=== PATIENT | female | born 1950 | race Caucasian/White ===

== ENCOUNTER 2023-12-11 22:37 | Observation (INO) | payer MEDICARE, OTHER, SELFPAY ==
[2023-12-11 18:26] VITALS: BP 180/106
[2023-12-11 20:37] VITALS: BP 155/73; BMI 23.0
--- NOTE | 2023-12-11 20:39 | EDRN ---
Pt saw a copy camera operator approximately 3 weeks ago and says she took a swab of her legs and pt says it was positive for staph. Career Developer wanted to put pt on doxycyline x 10 days however pt declined because while she has had it in the past, she is
concerned she would have a reaction to it. Pt says she has a lot of drug allergies 'I'm paranoid about taking anything. 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
she is almost done with 2 weeks of taking it. Pt saw her primary care physician on 12/03 and while pt feels her legs are improving, the doctor 'didn't like the look of them' and advised pt come to ED however because pt lives alone and care for dogs,
she was unable to come to the ED until today when she got dog care. Pt had a VN but says the nurse wanted to use telfa pads but pt cannot use them because she says the liquid from her legs sticks to the pads and she has a very difficult time
removing them. VN was discontinued last week 'because I don't have the type of sores that require monitoring.' Pt has a yellowish look and says she knows this because she eats about 1/2 pound of carrots daily. Pt says her physician is aware and
checks her regularly. Pt denies fever/chills/cough, cp, sob, abd pain, dizziness, weakness, urinary symptoms.
--- NOTE | 2023-12-11 20:50 | ED.GENMED ---
History of Present Illness
General
Chief Complaint: Skin Problem
Source: patient
Exam Limitations: none
Time Seen by Provider: 12/11/23 20:07
Nursing documentation reviewed up to this point in time: agreed with
Travel History
Have you had any contact with someone who has COVID-19?: No
Do you have any symptoms of coronavirus? Fever > 100 degrees, chills, cough, shortness of breath, sore throat, loss of taste or smell, muscle aches, or headache?: No
History of Present Illness
History of Present Illness:
73 y/o F with h/o stasis dermatitis, chronic lymphedema
here with worsening b/l LE skin lesions and swelling with redness streaking past her knees into her thighs
this has been ongoin issue
she has been hospitalized, previously 2020 with something similar
had vascular studies without obvious cause for her chronic edema
but about 3 weeks ago and she was told she had staph infection and the germ drier watned to do doxy but pt is very against medicaitons becuase of allergies
so she did a topical antibiotic and just completed the course but has had extenssion of her redness up her thighs and weeping of her wounds
she had home care for a few weeks which just ended
she saw PCP 4 days ago who wanted her to come tot he ER for admission but she said she didn't have care for her dogs until today
she denie cp, sob, fever, chills, cold feet
she has ongoin undiagnosed abdominal distension as well, has had imaging without cause
Past History
Past History
ED Past Medical History: None
ED Past Surgical History: None
Patient has exhibited threatening behavior?: No
Social History
Tobacco: Non-smoker
Personal:
Living: with family
Review of Systems
Review of Systems
Allergies reviewed?: Yes
All Other Systems: Not applicable
Phy Exam
Physical Exam
Physical Exam:
GENERAL: Alert , in no apparent distress
EYE: pupils equal and reactive
NECK: Supple
ENT: o/p clr, mmm.
CARDIAC: Regular rate and rhythm .
LUNGS: Clear breath sounds bilaterally, no acute respiratory distress, no wheezes/rales/rhonchi
ABDOMEN: Soft, distended, without focal tenderness, no r/g, no cvat, normal bowel sounds
NEUROLOGICAL: Alert and oriented, no focal neuro deficits
SKIN: Warm and dry,
erythema from distal thigh down to foot b/l
edema
venous stasis dermatitis with cauliflower looking lesions worse on the right than left; nontender
pulses palpated
MUSCULOSKELETAL: lymphedema, venous stasis purplisth pigmentation with dermatitis/thickening of the skin/tissue
erthema proximally in the thighs
PSYCH: Normal and appropriate interaction.
Course
Orders/Labs/Results
Orders:
Orders
12/11/23 21:25
Complete Blood Count/With Diff Urgent
Comprehensive Metabolic Panel Urgent
Erythrocyte Sed Rate Urgent
Comment: ADD ON
PTT Urgent
Prothrombin Time Urgent
Blood Culture Q30M
JERRI Source: Blood/Venous
Specimen Description:
12/11/23 21:26
C-Reactive Protein Urgent
Comment: ADD ON
Lactic Acid Urgent
Wound Culture [Wound/Abscess/Other Culture] Urgent
JERRI Source: Leg
Specimen Description: Right
Date Specimen was Collected: 12/11/23
Time Specimen was Collected: 20:56
12/11/23 21:28
Blood Culture Q30M
JERRI Source: Blood/Venous
Specimen Description:
12/11/23 21:46
Vancomycin 1 Gram/200 ml [Vancocin] 1 gram in 200 ml IV NOW
12/11/23 22:22
Add On- LAB Urgent
Tests Added?: crp and esr
04/12/24 22:29
Admit/Transfer Patient As Directed
Co-Sign Provider:
Level of Care: Observation services
Assign to:: Medical/Surgical
Physician / Group: Etienne
Diagnosis: Leg cellulitis
12/11/23 22:30
Code Status As Directed
Resuscitation Status: Full Code
12/12/23 00:17
Bisacodyl [Dulcolax] 10 mg RECTAL E52AEAN PRN
Cholecalciferol (Vitamin D3) [VITAMIN D3 (cholecalciferol)] 25 mcg PO BID PRN
Cyanocobalamin [Vitamin B-12] 1,000 mcg PO DAILY PRN
Docusate W/Senna [Senokot-S] 1 tablet PO BIDPRN PRN
Polyethylene Glycol Powder [Miralax] 17 grams PO DAILYPRN PRN
12/12/23 00:17
Consult Notification Routine
Specialty to Notify: Infectious Disease
Date consulting provider notified: 12/12/23
Time consulting provider notified: 07:48
Notified:: Provider
Comment: TT'd Physician On-Call(Paulie)
INFECTIOUS DISEASE CONSULT Routine
Consulting Provider: Marci Apodaca
Was physician already notified: Yes
Reason for consult: R>L Leg Wounds. ?Impetigo
WOUND/OSTOMY CONSULT Routine
Reason for Consult: R>L LE wound/cellulitis
Activity As Directed
Activity Level: Ambulate
Elevate foot of bed [Foot of bed elevation] As Directed
Elevation Level:: 30 degrees
Pneumatic Compression Sleeves As Directed
Type: Knee high
Vital Signs As Directed
Frequency: Per unit guidelines
Weight As Directed
Frequency: Daily
DX Deep Vein Thrombosis Video Routine
12/12/23 Breakfast
Regular
At Your Request: Full Participation
Regular diet: Gluten Free
12/12/23 10:57
Basic Metabolic Panel IN AM
Complete Blood Count/With Diff IN AM
Abnormal Lab Results
12/11/23 12/11/23
21:25 21:26
Hct 36.1 L %
(37.0-47.0)
RDW 14.6 H %
(11.5-14.5)
Absolute Neuts (auto) 8.0 H 10^3/uL
(1.4-6.5)
Absolute Lymphs (auto) 0.6 L 10^3/uL
(1.2-3.4)
Neutrophils % 83.8 H %
(42.2-75.2)
Lymphocytes % 6.6 L %
(20.5-51.1)
ESR 21 H mm/hour
(0-20)
BUN 22 H mg/dl
(7-17)
C-Reactive Protein 15.40 H mg/L
(0.0-10.00)
12/11/23 21:25
12/11/23 21:25
Vital Signs
Initial and Last Documented VS:
Initial Vital Signs
Temp Pulse Resp BP Pulse Ox
98.6 F 85 18 180/106 100
12/11/23 18:26 12/11/23 18:26 12/11/23 18:26 12/11/23 18:26 12/11/23 18:26
Last Documented Vital Signs
Temp Pulse Resp BP Pulse Ox
98.0 F 76 18 169/97 100
12/14/23 15:11 12/14/23 15:11 12/14/23 15:11 12/14/23 15:11 12/14/23 15:11
MDM/Problems Addressed
Differential Diagnosis Includes:
cellulitis, stasis dermatitis, lymphedema
MDM/Problems Addressed:
73 y/O F with h/o stasis dermatitis, chronic edema, worsening redness up into her thighs and some weeping in legs; had staph culture 3 weeks ago but refused oral abx and did topical meds; redness worsening up legs; pcp told her to come in 3 days ago
but she didn't have poultry inseminator; no fever; pulses intact; wound culture and blood cultures taken; all PCN; will order vanc given penicillin allergy
pt is very hesitant about taking medications but agreed when i spoke with her
*Critical Care Note
Total Time (30-74mins, 75-104mins- exclusive of procedures): Not Applicable
ED Attending Note
-
Portions of this chart may have been created with voice recognition software.� Occasional wrong word or��sound alike� substitutions may have occurred due to the inherent limitations of voice recognition software.
Discharge Plan
Departure
Patient Disposition: Admit
Date of Disposition: 12/11/23
Time of Disposition: 21:27
Admit to: Med/Surg
Presentation/result/management discussed w/ accepting MD/DO: Hospitalist
Patient with high blood pressure during this ER visit?: No
Condition: Fair
Covid-19: Not Applicable
Discharge Problem:
Bilateral cellulitis of lower leg
Interventions
Interventions:
*Risk Screen - Suicide Last Done: 12/12/23 01:04
*General Assessment Last Done: 12/11/23 18:26
*Neglect/Abuse Screening Last Done: 12/11/23 18:26
ED- Fall Risk Assessment Last Done: 12/11/23 21:35
*ED COVID-19 Vaccine History Last Done: 12/12/23 01:04
*Nursing Disposition Last Done: 12/12/23 00:10
ED-Skin Assessment Last Done: 12/11/23 20:37
Discharge Date and Time
Discharge Date/Time: 12/12/23 00:10
[2023-12-11 21:36] LABS: % Basophils 0.4 % (0-2); % Eosinophils 2.6 % (0-6); % Immature Granulocytes 0.3 % (0-0.5); % Lymphocytes 6.6 % (20.5-51.1); % Monocytes 6.3 % (1.7-9.3); % Neutrophils 83.8 % (42.2-75.2); Absolute Eosinophils 0.3 10^3/uL (0-0.7); Absolute Lymphocytes 0.6 10^3/uL (1.2-3.4); Absolute Monocytes 0.6 10^3/uL (0.1-0.6); Hematocrit 36.1 % (37.0-47.0); Mean Corp Hgb Conc. 33.2 g/dL (33.0-37.0); Mean Corpuscular Hgb 27.8 pg (27.0-31.0); Mean Corpuscular Volume 83.8 fL (81.0-99.0); Nucleated Red Blood Cells % 0 %; Platelet Count 287 10^3/uL (130-400); Red Blood Cell Count 4.31 10^6/uL (4.20-5.40); Red Cell Dist. Width 14.6 % (11.5-14.5); White Blood Cell Count 9.6 10^3/uL (4.8-10.8)
--- NOTE | 2023-12-11 21:37 | EDRN ---
Yesica GRAVES wiped area of pt's RLE with alcohol wipe prior to piercing area with sterile needle to obtain culture. This RN was swabbing pt's R arm with alcohol prep for IV start and pt got upset when she discovered it was alcohol prep stating she
is allergic. Area wiped off. Informed pt her RLE was wiped with alcohol prep pad - no reaction. Pt stated she could 'feel a reaction starting' in her arm. Attempted to clean area with betadine swab and pt pulled her arm away stating that can't
be used either because she has an allergy (not listed in allergy list). Pt said the only thing that can be used to clean her skin prior to IV insertion/blood draws is hydrogen peroxide. This RN used hydrogen peroxide to clean sites prior to blood
draw and IV insertion. Pt added that she is dehydrated, has not been drinking much lately and that she is most likely constipated also.
[2023-12-11 21:48] LABS: APTT 26.2 Sec (23.4-35.0)
[2023-12-11 21:49] LABS: Lactic Acid 1.4 mmol/L (0.7-2.0)
[2023-12-11 21:53] LABS: ALT (SGPT) 22 U/L (0-35); AST (SGOT) 34 U/L (14-36); Albumin 4.1 g/dl (3.5-5.0); Alkaline Phosphatase 102 U/L (38-126); Blood Urea Nitrogen 22 mg/dl (7-17); Calcium 9.7 mg/dl (8.4-10.2); Carbon Dioxide 29 mmol/L (22-30); Chloride 101 mmol/L (98-107); Estimated Creatinine Clearance 62 ml/min; Glucose 93 mg/dl (70-99); Potassium 3.8 mmol/L (3.5-5.1); Sodium 137 mmol/L (135-145); Total Bilirubin 0.4 mg/dl (0.2-1.3); Total Protein 6.8 g/dl (6.3-8.2); eGFR > 60.00
[2023-12-11 22:00] VITALS: BP 148/68
--- NOTE | 2023-12-11 22:10 | EDRN ---
Admitting physician at pt bedside. This RN went in to start IV vancomycin. Pt declined 'I don't want to start anything overnight. I want to be more alert and with it, not sleeping when I try something new.' IV vancomycin not given.
--- NOTE | 2023-12-11 22:14 | HPS.HSE ---
Addendum entered and electronically signed by Kelly Clifton DO 12/11/23 22:41:
Addendum:
Discussed with ID
- Recommending elevation of LE above level of heart
- Apply néstor-wrap to b/l LE
- Will discuss with nursing
Original Note:
Family Physician
-
Family Physician: * NONE
Chief Complaint
-
B/L Leg Erythema sent in for Concern for Cellulitis
History of Present Illness
73yo F with PMH Venous Stasis Dermatitis / Lymphedema, Extensive Drug Allergy Profile, Anxiety only on homeopathic/herbal supplements presents to ER sent in by PCP for concern for R>L LE cellulitis. She states mid october she started developing
worsening erythema with mild leg swelling increase. Over the last 1 month right lateral leg wound has developed with honey colored serous drainage. She saw make up girl Dr. Татьяна Lugo who performed staph culture which was positive. Called her and
recommended antibiotics which pt declined. Pt has been providing her own local care. She states she had a bad experience with a wound care clinic in the past. Denies fever, chills, chest pain, palps, wheezing, cough, abd pain, n/v/d/c, dysuria, calf
or leg pain.
Allergies:
PCN - respiratory distress
Sulfa - 'welts'
Keflex - 'blistering lesions'
ER course: Pt presents with V.S.S. WBC 9.6K. LA 1.4. Pt initially ordered IV vancomycin in ER but pt declined upon attempting to administer. Admitted for wound care and ID evaluation.
Medical History
Past Medical History
Past Medical History: Reports Other (Venous Stasis Dermatitis / Lymphedema, Extensive Drug Allergy Profile, Anxiety)
Past Surgical History: Reports Other (Tonsillectomy)
Social History
Tobacco: Non-smoker
Alcohol: None ('allergic to alcohol')
Drug: None
Personal: Single
Living: Alone (Lives with her Dog)
Family History
Family History: Other (Father with MM. Mother with HTN/CVA.)
Allergies / Home Medications
Allergies reflects when Allergies were last updated in [facility].
Home Medications with original date entered in [facility]
Allergy/Medication List:
Allergies
Allergy/AdvReac Type Severity Reaction Status Date / Time
cephalexin [From Keflex] Allergy Mild Rash Verified 12/11/23 20:38
alcohol Allergy Unknown Shortness Verified 12/11/23 21:43
of Breath
mold Allergy Unknown Verified 12/11/23 20:38
Penicillins Allergy Unknown Verified 12/11/23 20:38
povidone-iodine Allergy Unknown Verified 12/11/23 21:43
[From Betadine]
Sulfa (Sulfonamide Allergy Unknown Verified 12/11/23 20:38
Antibiotics)
enviromental allergies Allergy Shortness Uncoded 12/11/23 20:38
of Breath
Home Medications
cholecalciferol (vitamin D3) 25 mcg (1,000 unit) capsule (Vitamin D3) 4,000 unit PO BID PRN Supplement 05/02/21
cyanocobalamin (vitamin B-12) 1,000 mcg tablet 1,000 mcg sublingual DAILY PRN Supplement 05/02/21
d-mannose 500 mg capsule 500 mg PO DAILY PRN supplement ##0 05/02/21
digestive no.8-L.acidophilus 50 million cell-pectin 100 mg tablet (Digestive Enzyme (acidophilus, pectin, bromelain)) 1 - 2 cap PO AC PRN digestive aid 05/02/21
tpouvuynzxw-mtprrtjve-muas361-hyal 750 mg-100 mg-125 mg-1.65 mg tablet 2 tab PO BID PRN Supplement 05/02/21
mv-min-vit C 250 ej-olyvak-uiqwf HCl-herb 124 12.5 mg chewable tablet (Immune Support) 2 capsules PO DAILY PRN Supplement 05/02/21
Homeopathic Herbal Tea 1 dose PO DAILY 12/11/23
ascorbate calcium-bioflavonoid 1,000 mg-200 mg tablet (Kristy-C with Bioflavonoids) 1 tab PO BID PRN Supplement 12/11/23
Review of Systems
-
A 12 point ROS was completed and negative except as noted: Yes
Physical Exam
Vital Signs
Vital Signs
Temp Pulse Resp BP Pulse Ox
98.6 F 88 14 148/68 98
12/11/23 18:26 12/11/23 22:00 12/11/23 22:00 12/11/23 22:00 12/11/23 20:37
Physical Exam
General: Well Developed, Well Nourished and No Apparent Distress
HEENT: NormoCephalic, Moist mucous membranes and Atraumatic
Respiratory: Clear
Cardiac: S1/S2 and Regular Rhythm; No Murmur or Rub
GI: Soft, Non Tender, Non Distended and Normal Bowel Sounds; No Organomegaly
Rectal: Deferred by Provider
Musculoskeletal: No Clubbing, No Cyanosis and No Edema
Skin: Warm and Other (B/L LE lymphedema. Honey crusted lesion on right lateral tibia. Serous drainage. No TTP. )
Neuro: Awake, Alert, Oriented, AO x 3, No Motor Deficits and Nonfocal/grossly intact
Hematologic/Lymphatic: No Lymphadenopathy
Psych: Anxious
Laboratory Results
-
12/11/23 21:25
12/11/23 21:25
Laboratory Results
PT 13.0 Sec (11.4-14.6) 12/11/23 21:25
INR 1.00 12/11/23 21:25
APTT 26.2 Sec (23.4-35.0) 12/11/23 21:25
Lactic Acid 1.4 mmol/L (0.7-2.0) 12/11/23 21:26
Total Bilirubin 0.4 mg/dl (0.2-1.3) 12/11/23 21:25
AST 34 U/L (14-36) 12/11/23 21:25
ALT 22 U/L (0-35) 12/11/23 21:25
Alkaline Phosphatase 102 U/L (38-126) 12/11/23 21:25
Data Reviewed
-
Lab Data: Labs Reviewed by me
Old Records: Reviewed
Impression/Plan
-
B/L R>L Leg Cellulitis
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 Follows with Derm Dr. Татьяна Lugo who performed +staph culture and recommended abx that pt initially refused
- Afebrile. No leukocytosis. LA 1.4.
- Vanco initially ordered pt refused. She seems agreeable to have ID and wound care evaluate and to consider starting abx upon their recommendations
- Check ESR/CRP
- Continue leg elevation.
Multiple Drug Allergies - PCN - Respiratory distress; Sulfa - 'welts'; Keflex - 'blistering lesions'. Will consult ID.
Hx Venous Stasis/Lymphedema - No known CHF or liver disease history. TTE 2020 wtih EF 70%, no WMA. Encourage leg elevation.
Anxiety - Pt uses homeopathic agents
Diet: Regular
DVT Ppx: SCDs. High suspicion pt will refuse Lovenox. Consider further if remains hospitalized.
Code Status: Full
[2023-12-11 22:57] LABS: Erythrocyte Sed Rate 21 mm/hour (0-20)
--- NOTE | 2023-12-11 23:15 | W.PN.UPDATE ---
Addendum entered and electronically signed by Kelly Clifton DO 12/11/23 23:18:
- This document entered in error
Original Note:
Update Note
Progress Note Update
Please refer to attestation to [employer] note for attending history/assessment/plan
--- NOTE | 2023-12-11 23:19 | EDRN ---
B/L LE's wrapped with néstor wraps and propped on pillows per Dr Cilfton who said that is what ID recommends. Pt states she needs hypoallergenic bed linens/gown. Pt finishing dinner salad. field service supervisor aware of pt's need for hypoallergenic
linen.
[2023-12-12 00:31] VITALS: BP 149/74
[2023-12-12 00:32] VITALS: BMI 23.4
--- NOTE | 2023-12-12 02:00 | PTCARENOTE ---
Received patient from the ED. Patient AAOx3, lungs clear, heart rate regular, +2 lower extremity pitting edema, weak PP. distended abdomen. Lower legs are reddened, flakey, scabbed, tender, with cauliflower like patches. Legs are raised 30 degrees
with bed position and pillows. Patient uses a cane for ambulation. Patient admitted and oriented to the unit. Bed alarm placed for safety. Patient verbalized an understanding to ring for all transfers. Call parker demonstrated and in reach.
--- NOTE | 2023-12-12 02:19 | PTCARENOTE ---
Patient has a list of supplements she wants to review with the doctor. She has some with her that she will discuss with the doctor prior to taking.
[2023-12-12 06:00] VITALS: BMI 23.4
[2023-12-12 07:55] VITALS: BP 139/76
--- NOTE | 2023-12-12 08:24 | W.PN.HOSP.TC ---
Addendum entered and electronically signed by Tino Roger MD 12/12/23 17:45:
RN and CM told me she wanted to speak with physician and possible sign AMA. I went back and talked to patient and RN at bedside. For now she is staying but that could change. I also spoke with ID in person.
Original Note:
Today's Communication/Plan
-
ID eval.
Assessment / Plan
Assessment / Plan
Physical Exam
General: Well Developed, Well Nourished and No Apparent Distress
HEENT: NormoCephalic, Moist mucous membranes and Atraumatic
Respiratory: Clear
Cardiac: S1/S2 and Regular Rhythm; No Murmur or Rub
GI: Soft, Non Tender, Non Distended and Normal Bowel Sounds; No Organomegaly
Rectal: Deferred by Provider
Musculoskeletal: No Clubbing, No Cyanosis and No Edema
Skin: Warm and legs are wrapped up today. Other (upon admission B/L LE lymphedema. Honey crusted lesion on right lateral tibia. Serous drainage. No TTP. )
Neuro: Awake, Alert, Oriented, AO x 3, No Motor Deficits and Nonfocal/grossly intact
Hematologic/Lymphatic: No Lymphadenopathy
Psych: Anxious
A/P:
Possible B/L R>L Leg Cellulitis
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 Follows with Derm Dr. Татьяна Lugo who performed +staph culture and recommended abx that pt initially refused
- Afebrile. No leukocytosis. LA 1.4.
- Vanco initially ordered pt refused. She seems agreeable to have ID and wound care evaluate and to consider starting abx upon their recommendations
- Check ESR/CRP
- Continue leg elevation.
-Patient concerned about her observation status. She is thinking about signing AGAINST MEDICAL ADVICE. If she stays until ID sees her, she might meet criteria for inpatient if she needs IV antibiotics. Otherwise she would be okay to sign AMA or
even be discharged.
Multiple Drug Allergies - PCN - Respiratory distress; Sulfa - 'welts'; Keflex - 'blistering lesions'. Will consult ID.
Hx Venous Stasis/Lymphedema - No known CHF or liver disease history. TTE 2020 wtih EF 70%, no WMA. Encourage leg elevation.
Anxiety - Pt uses homeopathic agents
Diet: Regular
DVT Ppx: SCDs. High suspicion pt will refuse Lovenox. Consider further if remains hospitalized.
Code Status: Full
Anticipated Discharge: 24 - 48 hours
Subjective/Interval History
-
Date of Service: December 12, 2023
Patient denies any new complaints. Afebrile
Objective Data
-
Labs:
Laboratory Results
12/11/23 12/12/23
21:25 06:00
WBC 9.6 Pending
Hgb 12.0 Pending
Hct 36.1 L Pending
Plt Count 287 Pending
PT 13.0
INR 1.00
APTT 26.2
Sodium 137 Pending
Potassium 3.8 Pending
Chloride 101 Pending
Carbon Dioxide 29 Pending
BUN 22 H Pending
Creatinine 0.7 Pending
Glucose 93 Pending
Calcium 9.7 Pending
Total Bilirubin 0.4
AST 34
ALT 22
Alkaline Phosphatase 102
Vital Signs:
Vital Signs
Temp Pulse Resp BP Pulse Ox
97.8 F 94 16 149/74 99
12/12/23 00:31 12/12/23 00:31 12/12/23 00:31 12/12/23 00:31 12/12/23 00:31
I&O
12/11/23 12/12/23 12/13/23
06:59 06:59 06:59
Intake Total 360 / 360
Balance 360 / 360
--- NOTE | 2023-12-12 08:30 | PTCARENOTE ---
Checked in on pt and pt now sleeping holding the menu. Will cont to observe her satis and be available.
[2023-12-12 11:05] LABS: % Basophils 0.3 % (0-2); % Eosinophils 2.5 % (0-6); % Immature Granulocytes 0.3 % (0-0.5); % Monocytes 10.5 % (1.7-9.3); % Neutrophils 77.4 % (42.2-75.2); Absolute Eosinophils 0.2 10^3/uL (0-0.7); Absolute Lymphocytes 0.6 10^3/uL (1.2-3.4); Absolute Monocytes 0.7 10^3/uL (0.1-0.6); Absolute Neutrophils 5.3 10^3/uL (1.4-6.5); Hematocrit 31.9 % (37.0-47.0); Hemoglobin 10.7 g/dL (12.0-16.0); Mean Corp Hgb Conc. 33.5 g/dL (33.0-37.0); Mean Corpuscular Hgb 27.9 pg (27.0-31.0); Mean Corpuscular Volume 83.3 fL (81.0-99.0); Mean Platelet Volume 10.1 fL (7.4-10.4); Nucleated Red Blood Cells % 0 %; Platelet Count 234 10^3/uL (130-400); Red Blood Cell Count 3.83 10^6/uL (4.20-5.40); Red Cell Dist. Width 14.6 % (11.5-14.5); White Blood Cell Count 6.9 10^3/uL (4.8-10.8)
[2023-12-12 11:23] LABS: Blood Urea Nitrogen 20 mg/dl (7-17); Calcium 8.9 mg/dl (8.4-10.2); Carbon Dioxide 26 mmol/L (22-30); Chloride 110 mmol/L (98-107); Estimated Creatinine Clearance 71 ml/min; Glucose 100 mg/dl (70-99); Potassium 3.7 mmol/L (3.5-5.1); Sodium 138 mmol/L (135-145); eGFR > 60.00
--- NOTE | 2023-12-12 11:33 | PTCARENOTE ---
Pt still asleep at this point. Will cont to monitor.
--- NOTE | 2023-12-12 12:43 | CM ---
Addendum entered by Glenis Santana 12/12/23 12:47:
CM consult for advanced directives
Pt notes she already has ADs at home which need to be updated
She accepted AD packet
Original Note:
CM met with pt bedside
Pt resides alone in a 2SH with 1STE
Full flight to 2nd floor
Pt is independent with her ADLs and drives+
She utilizes a can while in the community
Pt recently [facility]
PCP- Angelina Jaimes
Rx- Le
Pt noted she does not believe in traditional medicine
Tries to follow holistic approach to health and wellness
Pt is OBS- CLARK verbally reviewed
Copy providede
Pt upset regarding OBS status- noted she might consider leaving AMA
Pt also upset she was not notified re: OBS status prior to admission
Offered risk info- pt requested time to think about how she wants to proceed
Outreach to Dr Roger/SAUNDRA with update
Discharge Disposition- home, watch for VN/WOC/abx needs
--- NOTE | 2023-12-12 12:51 | CON.ID ---
Consultation
-
Date/Time Consultation Requested: 12/12/23 00:17
Date/Time Consultation Performed: 12/12/23 16:49
Requesting Provider: Dr Clifton
Performing Provider: Dr Apodaca
Reason for Consultation: R>L Leg Wounds. ?Impetigo
Chief Complaint / Past History
Chief Complaint
chronic lymphedema
History of Present Illness
Ms Quiñonez is a 73 year old female with known history of uncontrolled, chornic lymphedea with venous stasis, who belives she is allergic/intolerant to most substances, she was referred to the ER for chronic drainage from the bilateral legs with
yellowish, opaque color. She states it is unchanged for several weeks. She has previously tried our lymphedema center however she feels that the devices that were recommended (LUCY-wraps and SCDs) had substances that she was allergic to and stopped
following up with them. She did have her legs compressed and elevated overnight since admission and reports significant improvement in the erythema and edema. She reports a superficial culture done several weeks ago was positive for 'staph' and
that her director card recommended oral antibiotics and she refused. No fevers or chills. No chest pain, palpitations, wheezing, cough, abdominla pain, nausea, vomiting, diarrhea, constipation, dysuria, calf or leg pain.
Past History
Additional Past Medical History:
Venous Stasis Dermatitis / Lymphedema, Extensive Drug Allergy Profile, Anxiety
Additional Past Surgical History:
Tonsillectomy
Allergy History:
cephalexin [From Keflex] Allergy (Mild, Verified 12/11/23 20:38)
Rash
alcohol Allergy (Unknown, Verified 12/11/23 21:43)
Shortness of Breath
latex Allergy (Verified 12/11/23 23:20)
Unknown
mold Allergy (Verified 12/11/23 20:38)
Unknown
Penicillins Allergy (Verified 12/12/23 12:14)
Shortness of Breath
povidone-iodine [From Betadine] Allergy (Verified 12/11/23 21:43)
Unknown
Sulfa (Sulfonamide Antibiotics) Allergy (Verified 12/12/23 12:14)
Hives
enviromental allergies Allergy (Uncoded 12/11/23 20:38)
Shortness of Breath
Medications Reviewed: Yes
Social History
Tobacco: Non-Smoker
Alcohol: None
Drug: None
Family History
Family History: Not Pertinent
Review of Systems
Review of Systems
General: Negative Fever or Chills
All systems: All other systems were reviewed and were negative
Vital Signs
Temp Pulse Resp BP Pulse Ox
98.0 F 81 16 139/76 96
12/12/23 07:55 12/12/23 07:55 12/12/23 07:55 12/12/23 07:55 12/12/23 07:55
Physical Exam
Physical Exam
Constitutional: No Acute Distress
Cardiovascular: Regular Rate and S1/S2; Negative Murmur or Rub
Pulmonary: Clear and Symmetric; Negative Wheezes, Rales or Rhonchi
Gastrointestinal: Soft, Non Tender, Non Distended and Normal Bowel Sounds
Extremities: Other (bilateral chronic lichenification with skin thickening, papillomatosis, yellowish drainage from around the papillomas)
Skin: Warm and Dry; Negative Jaundice
Neurological: Awake
Lab / Diagnostic Study Results
12/12/23 10:57
12/12/23 10:57
Abs Immat Gran (auto) 0.0 10^3/uL (0-0.05) 12/12/23 10:57
Absolute Neuts (auto) 5.3 10^3/uL (1.4-6.5) 12/12/23 10:57
Absolute Lymphs (auto) 0.6 10^3/uL (1.2-3.4) L 12/12/23 10:57
Absolute Monos (auto) 0.7 10^3/uL (0.1-0.6) H 12/12/23 10:57
Absolute Basos (auto) 0.0 10^3/uL (0-0.2) 12/12/23 10:57
Immature Gran % 0.3 % (0-0.5) 12/12/23 10:57
Neutrophils % 77.4 % (42.2-75.2) H 12/12/23 10:57
Lymphocytes % 9.0 % (20.5-51.1) L 12/12/23 10:57
Monocytes % 10.5 % (1.7-9.3) H 12/12/23 10:57
Eosinophils % 2.5 % (0-6) 12/12/23 10:57
Basophils % 0.3 % (0-2) 12/12/23 10:57
ESR Cancelled 12/11/23 22:19
PT 13.0 Sec (11.4-14.6) 12/11/23 21:25
INR 1.00 12/11/23 21:25
Lactic Acid 1.4 mmol/L (0.7-2.0) 12/11/23 21:26
C-Reactive Protein Cancelled 12/11/23 22:19
Microbiology Results
Micro:
12/11/23 21:26 Wound Culture - Pending
Leg - Right Gram Stain - Pending
12/11/23 21:25 Blood Culture - Pending
Blood/Venous
12/11/23 21:28 Blood Culture - Pending
Blood/Venous
Assessment / Plan
Ms Quiñonez volunteers that she 'isnt looking for western medicine,' and that she has deep personal beliefs about when she feels are the significant risks of antibiotics. She doesnt feel that the legs have changed much over the last several weeks.
She is not willing to try any empiric antibiotics and I am not certain that there would be much of a change anyways. Her symptoms could all be summed up as chronic uncontrolled lymphedema with venous stasis. Superficial skin cultures will always
result with multiple bacteria. She has already purchased a compounded medication which sounds to be mupirocin. She readily states 'I do everything I can to avoid antibiotic treatment.' I have offered workup for causes of lymphedema including TTE
which would be new to our system, venous US for venous reflex which would be a 3 year update - she is not willing to consider these while hospitalized. She mentions that her outpatient MDs have made similar recommendations and I would advise her to
continue following with them. I have offered a trial of empiric vancomycin which she is not willing to try even when I explained that it is very different than the medications that she feels that she has reacted to in the past. She prefers to try
the mupicorin that she had compounded. She has been compliant with compression and elevation while here and she reports that she is very satisfied with what she volunteered was significant improvement. She is not willing to follow up with
lymphedema center here as she objects to chronic compression and regular elevation. The only alternative I can think is the Lymphedema Center at [facility] which does offer lymph node transplant which can be partially effective, however, if she is
not willing to comply with their recommendations for post operative care I am not certain how much efficacy such a procedure would have. I do not see an indication for further hospitalization at this time - she has been afebrile, bp stable, without
leukocytosis or and L shift has already nearly normalized. Blood cultures are no growth to date. Wound culture is pending and expected to be polymicrobial. She could follow up with her PCP regarding this - or if she changes her mind and would
like to try an antibiotic inpatient then please notify me.
Ms Quiñonez and I have fundamentally different views on western medicine; her stated goal is to avoid western medicine which is the foundation of my training. She has refused all of my plans for this evening - though she states she might be
willing to pursue them outpatient with her PCP. I am not trained in wholistic medicine which is her stated preference. I would advise her to follow up with a primary care physician or her wholistic physician if that is her wish. I did suggest the
referral to [facility] lymphedema center which may consider.
Care Review
Plan reviewed with: Physician (Dr Roger)
--- NOTE | 2023-12-12 13:00 | PTCARENOTE ---
Spoke with pt a bedside and is wants to talk to the doctor before shes signs the AMA form. She has not been advised yet she stated so how can I sign this form? She was reluctant in coming to the hospital in the first place she said but her primary
Dr. Jaimes advised her to do so and stated that she needs antibiotics. She told him that she is not going to take any antibiotics and will treat this condition holistically. However she did come into the hospital this past evening. She is very
upset stating that 'They did this to again last last time.' They did not tell me that I was going to be admitted under observation. Notified MD. Will cont to monitor.
[2023-12-12 15:30] VITALS: BP 131/73
--- NOTE | 2023-12-12 21:11 | PTCARENOTE ---
Nursing music supervisor came to the patient's bedside twice to discuss any concerns about her plan of care and thoughts about leaving AMA. she is aware it is her choice to leave and she verbalized an understanding to alert us if she wants to leave AMA.
[2023-12-12 23:26] VITALS: BP 125/62
--- NOTE | 2023-12-13 02:00 | PTCARENOTE ---
Patient was accommodated with bottled water as requested due to her concerns over the water here. Also a gluten free box lunch was provided as requested.
[2023-12-13 06:00] VITALS: BMI 23.9
[2023-12-13 07:50] LABS: % Basophils 0.5 % (0-2); % Eosinophils 4.6 % (0-6); % Immature Granulocytes 0.4 % (0-0.5); % Lymphocytes 13.9 % (20.5-51.1); % Monocytes 10.7 % (1.7-9.3); % Neutrophils 69.9 % (42.2-75.2); Absolute Eosinophils 0.3 10^3/uL (0-0.7); Absolute Lymphocytes 0.8 10^3/uL (1.2-3.4); Absolute Monocytes 0.6 10^3/uL (0.1-0.6); Absolute Neutrophils 3.9 10^3/uL (1.4-6.5); Hemoglobin 12.4 g/dL (12.0-16.0); Mean Corp Hgb Conc. 31.8 g/dL (33.0-37.0); Mean Corpuscular Hgb 27.7 pg (27.0-31.0); Mean Corpuscular Volume 87.2 fL (81.0-99.0); Mean Platelet Volume 10.4 fL (7.4-10.4); Nucleated Red Blood Cells % 0 %; Platelet Count 273 10^3/uL (130-400); Red Blood Cell Count 4.47 10^6/uL (4.20-5.40); Red Cell Dist. Width 14.8 % (11.5-14.5); White Blood Cell Count 5.6 10^3/uL (4.8-10.8)
[2023-12-13 08:14] LABS: Blood Urea Nitrogen 21 mg/dl (7-17); Calcium 9.8 mg/dl (8.4-10.2); Carbon Dioxide 28 mmol/L (22-30); Chloride 103 mmol/L (98-107); Estimated Creatinine Clearance 71 ml/min; Glucose 99 mg/dl (70-99); Sodium 139 mmol/L (135-145); eGFR > 60.00
[2023-12-13 08:24] VITALS: BP 150/88
--- NOTE | 2023-12-13 10:53 | W.PN.ID1 ---
Date of Service
Date of Service: December 13, 2023
Today's Communication
Patient prefers to have ID and sensitivities before accepting antibiotics, will rediscuss with her in the AM
Assessment / Plan
Notified by RN that patient spoke with her daughter and is now agreeable to medical management
Likely Venous Stasis Dermatitis
Possible, not definite cellulitis
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
- blood cultures x2 no growth to date
- wound culture - gram stain polymicrobial as expected; anticipate polymicrobial culture as well - may or may not reflect actual cellulitis at this time
- continue to follow exam with compression, elevation
- planned to start doxycycline - she refused stating she cannot take generics
- continue compression/elevation
- chronic lymphedema is frequently manageable which can decrease rate of infections, but most often is not curable
- she would benefit form terminal operator relationship with a lymphedema center, she doesnt like could consider [facility] or [facility]
Patient prefers to have ID and sensitivities before accepting antibiotics, will rediscuss with her in the AM
Chief Complaint
-: Cellulitis (possible)
Subjective / Review of Systems
remains afebrile
bp stable
without leukocytosis
cr stable
wound culture: thus far GNR
blood cultures no growth to date
Vital Signs / Physical Exam
Vital Signs
Vital Signs
Temp Pulse Resp BP Pulse Ox
97.6 F 82 12 150/88 99
12/13/23 08:24 12/13/23 08:24 12/13/23 08:24 12/13/23 08:24 12/13/23 08:24
Physical Exam
Constitutional: No Acute Distress and Chronically Ill
Cardiovascular: Regular Rate and S1/S2; Negative Murmur or Rub
Pulmonary: Clear and Symmetric; Negative Wheezes or Rales
Gastrointestinal: Soft, Non Tender, Non Distended and Normal Bowel Sounds
Skin: Warm and Dry; Negative Rash or Jaundice
Objective Data
Lab Data
Lab Results
12/13/23 07:11
12/13/23 07:11
ESR Cancelled 12/11/23 22:19
PT 13.0 Sec (11.4-14.6) 12/11/23 21:25
INR 1.00 12/11/23 21:25
APTT 26.2 Sec (23.4-35.0) 12/11/23 21:25
Estimated Creat Clear 71 ml/min 12/13/23 07:11
Lactic Acid 1.4 mmol/L (0.7-2.0) 12/11/23 21:26
Total Bilirubin 0.4 mg/dl (0.2-1.3) 12/11/23 21:25
AST 34 U/L (14-36) 12/11/23 21:25
ALT 22 U/L (0-35) 12/11/23 21:25
Alkaline Phosphatase 102 U/L (38-126) 12/11/23 21:25
C-Reactive Protein Cancelled 12/11/23 22:19
Most recent labs reviewed.
Micro Results:
12/11/23 21:25 Blood Culture - Preliminary
Blood/Venous No Growth in 24 hours- Final report to follow
12/11/23 21:28 Blood Culture - Preliminary
Blood/Venous No Growth in 24 hours- Final report to follow
12/11/23 21:26 Wound Culture - Pending
Leg - Right Gram Stain - Preliminary
Care Review
Plan reviewed with: Physician (Dr Roger - patient refusing abx)
[2023-12-13 15:30] VITALS: BP 156/80
--- NOTE | 2023-12-13 15:48 | CM ---
Bedside meeting with pt per her request
Pt still upset she is OBS status and requesting CM to change her status
Medicare.gov info provided on OBS vs inpatient status
Encouraged her to call Medicare and [employer] re: out of pocket costs and copays
Pt with numerous complaints
Mainly that she was not made aware in ED her admission would be under OBS
Also concerned that she was asked to 'sign things' in the ED without given copies of paperwork
Provided risk info
Discharge Disposition- home, follow for needs
--- NOTE | 2023-12-13 17:24 | W.PN.HOSP.TC ---
Today's Communication/Plan
-
ID reeval today. Wound culture pending.
Assessment / Plan
Assessment / Plan
Physical Exam
General: Well Developed, Well Nourished and No Apparent Distress
HEENT: NormoCephalic, Moist mucous membranes and Atraumatic
Respiratory: Clear
Cardiac: S1/S2 and Regular Rhythm; No Murmur or Rub
GI: Soft, Non Tender, Non Distended and Normal Bowel Sounds; No Organomegaly
Rectal: Deferred by Provider
Musculoskeletal: No Clubbing, No Cyanosis and No Edema
Skin: Warm and legs are wrapped up today. Other (upon admission B/L LE lymphedema. Honey crusted lesion on right lateral tibia. Serous drainage. No TTP. )
Neuro: Awake, Alert, Oriented, AO x 3, No Motor Deficits and Nonfocal/grossly intact
Hematologic/Lymphatic: No Lymphadenopathy
Psych: Anxious
A/P:
Possible B/L R>L Leg Cellulitis. Venous stasis dermatitis. Chronic lymphedema
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 Follows with Derm Dr. Татьяна Lugo who performed +staph culture and recommended abx that pt initially refused
- Afebrile. No leukocytosis. LA 1.4.
- Vanco initially ordered pt refused. She seems agreeable to have ID and wound care evaluate and to consider starting abx upon their recommendations
- Check ESR/CRP
- Continue leg elevation.
-Blood cultures no growth to date
-Wound culture polymicrobial growth but pending definitive report
-PT OT ordered--> PT feels no skilled PT needed.
-ID consult appreciated
-Discussed with ID today on 12/12
-Discussed with RN today on 12/12
-ID was going to start broad-spectrum antibiotics either intravenous or orally but patient hesitant and want to wait for cultures to come back. ID okay to wait and will make final decisions tomorrow.
-Patient initially concerned about her observation status. She was thinking about signing AGAINST MEDICAL ADVICE but now ok to stay to decide if needs further treatment or can be discharged. She also wants to discuss with CM and/or physician
advisor tomorrow about her current status.
Multiple Drug Allergies - PCN - Respiratory distress; Sulfa - 'welts'; Keflex - 'blistering lesions'. ID on consult.
Hx Venous Stasis/Lymphedema - No known CHF or liver disease history. TTE 2020 wtih EF 70%, no WMA. Encourage leg elevation.
Anxiety - Pt uses homeopathic agents
Diet: Regular
DVT Ppx: SCDs. High suspicion pt will refuse Lovenox. Consider further if remains hospitalized.
Code Status: Full
Anticipated Discharge: 24 - 48 hours
Subjective/Interval History
-
Date of Service: December 13, 2023
Patient denies any new complaints. Legs with some discomfort. Remains afebrile.
Objective Data
-
Labs:
Laboratory Results
12/13/23
07:11
WBC 5.6
Hgb 12.4
Hct 39.0
Plt Count 273
Sodium 139
Potassium 4.0
Chloride 103
Carbon Dioxide 28
BUN 21 H
Creatinine 0.5 L
Glucose 99
Calcium 9.8
Vital Signs:
Vital Signs
Temp Pulse Resp BP Pulse Ox
97.9 F 84 18 156/80 99
12/13/23 15:30 12/13/23 15:30 12/13/23 15:30 12/13/23 15:30 12/13/23 15:30
I&O
12/12/23 12/13/23 12/14/23
06:59 06:59 06:59
Intake Total 360 / 360 1360 / 1360
Balance 360 / 360 1360 / 1360
[2023-12-13 23:31] VITALS: BP 144/71
--- NOTE | 2023-12-14 00:38 | PTCARENOTE ---
late entry, patient refusing 8pm vibramcyin dose, patient states she will not take any antibiotics until sensitivities come back and she will also not take a generic brand. Reinforced the poc regarding antibiotics, pt verbalized understanding and
states she will speak with MD in the morning to express her concerns.
[2023-12-14 06:00] VITALS: BMI 22.9
[2023-12-14 06:43] LABS: % Basophils 0.7 % (0-2); % Eosinophils 5.5 % (0-6); % Immature Granulocytes 0.1 % (0-0.5); % Lymphocytes 14.2 % (20.5-51.1); % Monocytes 9.8 % (1.7-9.3); % Neutrophils 69.7 % (42.2-75.2); Absolute Basophils 0.1 10^3/uL (0-0.2); Absolute Eosinophils 0.4 10^3/uL (0-0.7); Absolute Monocytes 0.7 10^3/uL (0.1-0.6); Hematocrit 38.5 % (37.0-47.0); Hemoglobin 12.5 g/dL (12.0-16.0); Mean Corp Hgb Conc. 32.5 g/dL (33.0-37.0); Mean Corpuscular Hgb 27.7 pg (27.0-31.0); Mean Corpuscular Volume 85.2 fL (81.0-99.0); Mean Platelet Volume 10.9 fL (7.4-10.4); Nucleated Red Blood Cells % 0 %; Platelet Count 328 10^3/uL (130-400); Red Blood Cell Count 4.52 10^6/uL (4.20-5.40); Red Cell Dist. Width 14.9 % (11.5-14.5); White Blood Cell Count 7.1 10^3/uL (4.8-10.8)
[2023-12-14 07:07] LABS: Blood Urea Nitrogen 22 mg/dl (7-17); Carbon Dioxide 24 mmol/L (22-30); Chloride 103 mmol/L (98-107); Estimated Creatinine Clearance 71 ml/min; Glucose 100 mg/dl (70-99); Potassium 4.2 mmol/L (3.5-5.1); Sodium 139 mmol/L (135-145); eGFR > 60.00
[2023-12-14 08:10] VITALS: BP 162/95
--- NOTE | 2023-12-14 09:11 | PTCARENOTE ---
Patient is refusing to take oral antibiotic this morning, patient does not trust if this medication is right for her, where it was manufactured and what chemical are in it. Education provided.
--- NOTE | 2023-12-14 10:32 | W.PN.HOSP.TC ---
Today's Communication/Plan
-
.
Assessment / Plan
Assessment / Plan
Physical Exam
General: Well Developed, Well Nourished and No Apparent Distress
HEENT: NormoCephalic, Moist mucous membranes and Atraumatic
Respiratory: Clear
Cardiac: S1/S2 and Regular Rhythm; No Murmur or Rub
GI: Soft, Non Tender, Non Distended and Normal Bowel Sounds; No Organomegaly
Rectal: no rectal bleeding
Musculoskeletal: No Clubbing, No Cyanosis and No Edema
Skin: Warm and legs are wrapped up today. Other (upon admission B/L LE lymphedema. Honey crusted lesion on right lateral tibia. Serous drainage. No TTP. )
Neuro: Awake, Alert, Oriented, AO x 3, No Motor Deficits and Nonfocal/grossly intact
Hematologic/Lymphatic: No Lymphadenopathy
Psych: calm, no agitation
A/P:
Possible B/L R>L Leg Cellulitis. Venous stasis dermatitis. Chronic lymphedema
- Presented with likely chronic staph wound on right lateral tibia, honey crusting lesion. Follows with Derm Dr. Татьяна Lugo who performed +staph culture and recommended abx that pt refused
- Afebrile. No leukocytosis. LA 1.4.
- Vanco initially ordered pt refused. She seemed agreeable to have ID but later refused wound care and antibiotics as she wanted her won wound care supplies ( no chemicals in them)
- Continue leg elevation.
-Blood cultures no growth to date
-Wound culture Providencia rettgeri , pt was given doxy but she refuses it
-PT OT ordered--> PT feels no skilled PT needed.
-ID consult appreciated. We recommended antibiotic therapy and wound care but she declined.
will dc her to f/w her OP doctors.
Multiple Drug Allergies - PCN - Respiratory distress; Sulfa - 'welts'; Keflex - 'blistering lesions'. ID on consult.
Hx Venous Stasis/Lymphedema - No known CHF or liver disease history. TTE 2020 wtih EF 70%, no WMA. Encourage leg elevation.
Anxiety - Pt uses homeopathic agents, she is lucid and pleasant but she wants to continue with her own home regimen
Diet: Regular
DVT Ppx: SCDs. High suspicion pt will refuse Lovenox. Consider further if remains hospitalized.
Code Status: Full
# Patient declined wound care application and antibiotics. Nothing to be done as inpatient at this point. She is hemodynamically stable and competent to make her own decisions. Verbalized understanding to our discussions and recommendations.
Total discharge time spent to see patient, examine the patient on the floor, review data and lab results, discuss discharge plan with patient, ID doctor, nursing staff around 65 minutes
Anticipated Discharge: Today
Subjective/Interval History
-
Date of Service: December 14, 2023
No complaints
No worsening pain in legs
refuses her antibiotics and wound care
Objective Data
-
Labs:
Laboratory Results
12/14/23
04:53
WBC 7.1
Hgb 12.5
Hct 38.5
Plt Count 328 D
Sodium 139
Potassium 4.2
Chloride 103
Carbon Dioxide 24
BUN 22 H
Creatinine 0.5 L
Glucose 100 H
Calcium 10.0
Vital Signs:
Vital Signs
Temp Pulse Resp BP Pulse Ox
97.7 F 86 18 162/95 98
12/14/23 08:10 12/14/23 08:10 12/14/23 08:10 12/14/23 08:10 12/14/23 08:10
I&O
12/13/23 12/14/23 12/15/23
06:59 06:59 06:59
Intake Total 1360 / 1360 1314 / 1314
Balance 1360 / 1360 1314 / 1314
--- NOTE | 2023-12-14 11:55 | WOUNDNOTE ---
KELLY (with photo flash)
--- NOTE | 2023-12-14 11:59 | WOUNDNOTE ---
[facility] RN note: Patient admitted with leg cellulitis.
See H&P for complete history.
PMH: Venous stasis, lymphedema, recently saw a hopper attendant Dr. Татьяна Lugo.
Wound Location and type/assessment: Patient admitted with: dermal stasis ulcers R medial and lateral calf, pink with white fibrin. L calf with scattered dried scabs suspect were previous blisters/ulcers.
+Palpable pedal pulses. LE venous Doppler negative for DVT. Patient declined sacral skin check.
Appetite:good.
Pressure redistribution devices in place: [employer] Accumax. She is mobile.
Plan: Patient would not allow any Vaseline type product on her skin. She declined Kerlix wrap and preferred no Angel wrap. She did allow ABD pads and Adam wraps. ABD pads and knee high Adam wrap applied. Patient tolerated well. She is keeping pillows
under her calves while in bed.
Will confirm orders with hospitalist and updated RN Tarah.
Care plan to be updated and will follow as needed.
Note to case management requested for discharge: VN if she agrees. Spoke with Cycling Instructor Jolene.
Recommend follow up at wound care center upon discharge.
--- NOTE | 2023-12-14 13:18 | W.DCSUMMARY ---
Discharge Summary
Discharge Data
Date of Admission: 12/11/23
Date of Discharge: 12/14/23
-
Pending Results: No
Hospital Course
73 years old female presented to the emergency room with worsening of bilateral skin lesions and swelling with erythema. Patient did not have fever. Patient had history of chronic lymphedema with venous stasis. Patient was not following with
wound care center. Patient was doing her own wound care at home. Patient reported history of staph infection that was diagnosed in the outpatient setting and she was offered doxycycline but she declined. Patient stated that she was allergic to a
lot of medications and chemicals. She did not have fever or chills. No abdominal pain, nausea, vomiting, diarrhea or leg pain. Patient was evaluated by infectious disease financial services education consultant. After prolonged discussion and multiple attempts to discuss
our recommendations and instructions, patient declined treatment with antibiotic and declined wound care. Patient had different views on Western medicine and did not like to use medications. Blood culture did not show any growth. Patient did not
have fevers in the hospital. No leukocytosis. Patient was seen by wound care nurse. Patient was advised to follow-up with wound care center or lymphedema center, she verbalized understanding. Patient remained hemodynamically stable and was
discharged in stable condition to follow-up with her primary care doctor.
Discharge Plan
-
Patient Disposition: Home (Routine Discharge)
Discharge Diagnosis/Procedures: Bilateral low extremity edema chronic wounds, erythema
You were evaluated by infectious diseases financial services education consultant. We recommended antibiotic treatment but you declined. Please follow with your primary care doctor. Your blood culture did not show any growth. We attached wound care center contact
information if you desire to follow-up. Continue to elevate your legs.
Diet: As tolerated
Activity Restrictions/Additional Instructions:
Wound Care Instructions
Bilateral Le's-clean with saline, ABD pad, Secure with knee high 6 inch Adam wraps, change daily and prn drainage.
Elevate heels off bed with pillows.
Frequent LE elevation.
Follow up with your glue mill operator.
Follow up at wound care center call for an appointment.
Referrals:
Edwin Jaimes MD [Family Provider] - in one to two weeks
[facility] [[facility] -
Prescriptions:
Continued
cyanocobalamin (vitamin B-12) 1,000 MCG tablet
1,000 mcg sublingual DAILY PRN (Reason: Supplement)
Patient Comments:
takes methylcobalamin SL by Solned
Immune Support 1 EACH tablet,chewable
2 capsules PO DAILY PRN (Reason: Supplement)
Patient Comments:
Takes [employer] STAMETS 7 brand
cholecalciferol (vitamin D3) [Vitamin D3] 1,000 UNIT capsule
4,000 unit PO BID PRN (Reason: Supplement)
d-mannose 500 mg Capsule
500 mg PO DAILY PRN (Reason: supplement) Qty: 0
Patient Comments:
takes D-Mannose with CranActin
xqkxyana-neivt-kqu 149-hyal ac 1 EACH tablet
2 tab PO BID PRN (Reason: Supplement)
Digestive Enzyme (acidoph,pec) 1 EACH tablet
1 - 2 cap PO AC PRN (Reason: digestive aid )
Patient Comments:
takes source naturals daily essential digestive enzyme
Kristy-C with Bioflavonoids 1,000-200 mg Tablet
1 tab PO BID PRN (Reason: Supplement)
Homeopathic Herbal Tea
1 dose PO DAILY
Patient Comments:
12/11/2023: Pt recieved this tea from an homeopathic herbalist.
Discharge Orders:
Discharge Patient (As Directed); Ordered 12/14/23
Ordered By: Sacha Hu
Discharge Date and Time
Print Language: LAO
[2023-12-14 15:11] VITALS: BP 169/97
--- NOTE | 2023-12-14 16:26 | CM ---
Addendum entered by Jolene Frederick 12/15/23 09:03:
Outpatient script for PT/OT was given to patient prior to discharge.
Original Note:
Patient has been medically cleared for discharge to home with [facility] services. Patient will also have outpatient PT/OT. She will obtain referral from her PCP. Patient has arranged for transport home.
--- NOTE | 2023-12-14 17:11 | W.PN.ID1 ---
Date of Service
Date of Service: December 14, 2023
Today's Communication
offered cipro - refused
Assessment / Plan
Likely Venous Stasis Dermatitis
Possible, not definite cellulitis
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
- SERENITY normal EF, no venous reflux
- blood cultures x2 no growth to date
- wound culture - providencia and GBS
- offered ciprofloxacin based on culture/sensitivities, she is skeptical, wants to do her own research
- I do think that she could likely safely tolerate it - she will call my office if she would like script
agree with discharge
Chief Complaint
-: Cellulitis (possible)
Subjective / Review of Systems
afebrile
bp stable
offered ciprofloxacin based on culture/sensitivities, she is skeptical, wants to do her own research
I do think that she could likely safely tolerate it - she will call my office if she would like script
Vital Signs / Physical Exam
Vital Signs
Vital Signs
Temp Pulse Resp BP Pulse Ox
98.0 F 76 18 169/97 100
12/14/23 15:11 12/14/23 15:11 12/14/23 15:11 12/14/23 15:11 12/14/23 15:11
Physical Exam
Constitutional: No Acute Distress
Cardiovascular: Regular Rate and S1/S2; Negative Murmur or Rub
Pulmonary: Clear and Symmetric; Negative Wheezes or Rales
Gastrointestinal: Soft, Non Tender, Non Distended and Normal Bowel Sounds
Skin: Warm and Dry; Negative Jaundice
Wound: Other (dressing take down deferred)
Objective Data
Lab Data
Lab Results
12/14/23 04:53
12/14/23 04:53
ESR Cancelled 12/11/23 22:19
PT 13.0 Sec (11.4-14.6) 12/11/23 21:25
INR 1.00 12/11/23 21:25
APTT 26.2 Sec (23.4-35.0) 12/11/23 21:25
Estimated Creat Clear 71 ml/min 12/14/23 04:53
Lactic Acid 1.4 mmol/L (0.7-2.0) 12/11/23 21:26
Total Bilirubin 0.4 mg/dl (0.2-1.3) 12/11/23 21:25
AST 34 U/L (14-36) 12/11/23 21:25
ALT 22 U/L (0-35) 12/11/23 21:25
Alkaline Phosphatase 102 U/L (38-126) 12/11/23 21:25
C-Reactive Protein Cancelled 12/11/23 22:19
Most recent labs reviewed.
Micro Results:
12/11/23 21:26 Wound Culture - Final
Leg - Right Providencia rettgeri
Streptococcus agalactiae
Diptheroids
Gram Stain - Final
12/11/23 21:25 Blood Culture - Preliminary
Blood/Venous No Growth in 48 hours- Final report to follow
12/11/23 21:28 Blood Culture - Preliminary
Blood/Venous No Growth in 48 hours- Final report to follow
--- NOTE | 2023-12-14 17:50 | PTCARENOTE ---
Discharge instructions printed, explained and signed with patient. Time for questioning allowed. IV pulled and patient wishes to eat diner before leaving. Script for PT/OT also given to patient.
== END 2023-12-14 19:24 | disposition home health service (06) ==
LOC: 2 NORTH 22:37
PROVIDERS: Hospitalist; Physician Assistant; ADMITTING PHYSICIAN Internal Medicine; ATTENDING PHYSICIAN Internal Medicine; CONSULT PHYSICIAN Student in an Organized Health Care Education/Training Program; EMERGENCY PHYSICIAN Emergency Medicine; FAMILY PHYSICIAN Internal Medicine Geriatric Medicine
DX: I89.0 Lymphedema, not elsewhere classified (principal); L53.9 Erythematous condition, unspecified; I87.2 Venous insufficiency (chronic) (peripheral); F41.9 Anxiety disorder, unspecified; Z86.19 Personal history of other infectious and parasitic diseases; Z88.8 Allergy status to other drugs, medicaments and biological substances; Z88.2 Allergy status to sulfonamides; Z88.1 Allergy status to other antibiotic agents; Z82.49 Family history of ischemic heart disease and other diseases of the circulatory system; Z82.3 Family history of stroke; Z91.040 Latex allergy status
CPT/HCPCS: 80048; 80053; 83605; 85025; 85610; 85652; 85730; 86140; 87040; 87070; 87077; 87147; 87186; 87205; 93970; 96374; 97162; 99284; G0378

== ENCOUNTER → 2025-01-16 15:08 | Outpatient (REF) | payer MEDICARE, OTHER, SELFPAY | LOC: HWRCS 15:08 | PROVIDERS: ATTENDING PHYSICIAN Nurse Practitioner Primary Care; FAMILY PHYSICIAN Internal Medicine Geriatric Medicine | DX: I10 Essential (primary) hypertension (principal); R07.89 Other chest pain; R01.1 Cardiac murmur, unspecified | CPT/HCPCS: 93306 ==